=== PATIENT | male | born 1960 | race Caucasian/White ===

== ENCOUNTER → 2016-07-22 | Outpatient (CLI) | payer BC ==
--- NOTE | 2016-07-22 08:08 | XR ---
EXAMINATION TYPE: XR cervical spine comp DATE OF EXAM: 07/22/2016 7:58 AM COMPARISON: NONE HISTORY: Pain posterior cervical spine TECHNIQUE: 5 view cervical spine FINDINGS: There may be some foraminal narrowing greatest at C5-6 on the left was slightly less forami nal stenosis at C5-6 on the right. There is loss of disc height C5-6. Posterior spinal lamellar line is intact. Prevertebral space is normal. Remaining disc heights are preserved. The odontoid is limite d due to overlying occiput. IMPRESSION: 1. Degenerative disc changes and bilateral foraminal stenosis C5-6.
== END | disposition home or self-care (01) ==
LOC: RADXRMAIN 07:42
PROVIDERS: ATTEND Family Medicine
DX: M99.71 Connective tissue and disc stenosis of intervertebral foramina of cervical region (principal); M50.322 Other cervical disc degeneration at C5-C6 level; M06.9 Rheumatoid arthritis, unspecified
CPT/HCPCS: 72050

== ENCOUNTER → 2018-05-27 | Outpatient (CLI) | payer BC ==
[2018-05-27 10:28] LABS: Blood Urea Nitrogen 13 mg/dL (9-20)
--- NOTE | 2018-05-27 12:04 | CT ---
EXAMINATION TYPE: CT angio chest DATE OF EXAM: 05/27/2018 COMPARISON: 05/08/2016 HISTORY: 57-year-old male Follow up to thoracic aneurysm TECHNIQUE: Contiguous axial scanning of the chest performed with IV Contrast, patient injected with 1 00 mL of Isovue 370. Coronal/sagittal MIP reconstructions performed. 3-D reconstructions generated on a dedicated independent workstation. CT DLP: 273.5 mGycm Automated exposure control for dose reduction was used. FINDINGS: Heart normal size without pericardial effusion. Motion artifacts at the aortic root but with redemonstrated mild aneurysm of 4.2 cm. Ascending aorta ectatic at 3.9 cm versus 3.7 m, previously, not significantly changed. Conventional arch vessel branching anatomy. The remainder of the thoracic aorta is normal caliber. Scattered nonenlarged mediastinal lymph nodes are unchanged. Nonenlarged and borderline sized hilar l ymph nodes measuring up to 1 cm in the right hilum are unchanged suggesting chronic postinflammatory etiology. No consolidation or pleural effusion. Tiny 3 mm posterior left midlung pulmonary nodule unchanged and benign. Tiny 3 mm subpleural pulmonary nodule peripheral left base, axial image 48, unchanged and benign. Strandy scarring in the lung bases. Some subpleural reticulations dependently in the lower lobes likely interstitial scarring. A couple small arterial phase vascular blushes in the right hepatic dome less likely vascular shuntin g. 1.3 cm vague hypodensity in the right hepatic dome, axial image 58 is present in 2016 in retrospec t suggesting a benign etiology. No osseous destructive process. IMPRESSION: 1. 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 2. ASCENDING AORTIC ECTASIA AT 3.9 CM IT IS RELATIVELY STABLE COMPARED TO 3.8 CM, PREVIOUSLY.
== END | disposition home or self-care (01) ==
LOC: RADCTMAIN 10:00
PROVIDERS: ATTEND Internal Medicine Interventional Cardiology
DX: I77.819 Aortic ectasia, unspecified site (principal); Q25.43 Congenital aneurysm of aorta
CPT/HCPCS: 82565; 84520; 71275; 36415; Q9967

== ENCOUNTER → 2019-05-17 | Outpatient (CLI) | payer OTHER ==
[2019-05-17 09:40] LABS: African American GFR (CKD) >90 (>60 ml/min/1.73 sqM); Blood Urea Nitrogen 12 mg/dL (9-20)
--- NOTE | 2019-05-17 12:35 | CT ---
EXAMINATION TYPE: CT angio chest DATE OF EXAM: 05/17/2019 COMPARISON: 05/27/2018 HISTORY: ascending aortic aneurysm follow up. CT DLP: 258.7 mGycm. Automated Exposure Control for Dose Reduction was Utilized. CONTRAST: CTA scan of the thorax is performed with IV Contrast, patient injected with 100 mL of Isovue 370, pul monary embolism protocol. MIP Images are created on CT scanner and reviewed. FINDINGS: LUNGS: Are a few punctate calcified granulomas. There are also bilateral subpleural 2 mm solid pulmon jesica nodules stable from 2018 likely benign. Minimal bibasilar subsegmental dependent atelectasis. Mil d centrilobular emphysema. Pleural parenchymal scarring at the lung bases. The lungs are grossly paty r, there is no concerning parenchymal mass identified. There is no pleural effusion or pneumothorax s een. The tracheobronchial tree is patent. MEDIASTINUM: Ascending thoracic aorta is upper limits of normal measuring 3.8 cm, similar to the prio r where this measured 3.9 cm (differences in slice selection account for the difference at 1 mm). Aor tic root is dilated measuring up to 4.5 cm, previously measuring up to 4.2 cm. Aortic arch is within normal limits showing 2.7 cm. Descending thoracic aorta is also within normal limits measuring 2.6 cm . Few mild coronary artery calcifications. There are no greater than 1 cm hilar or mediastinal lymph no zarina. No cardiomegaly or pericardial effusion is seen. OTHER: Very small hiatal hernia. Arterially enhancing lesions within the liver and segment 7 measurin g 8 mm and 6 mm. Additional lesion at the border of segment 8 is ill-defined and measures approximate ly 6 mm. These most commonly on the basis of flash filling hemangiomas and were seen on the prior of 05/19/2018. Ultrasound of the arterial portal shunts are possible. As stated on the prior exam dated are seen dating back to 2016. IMPRESSION: 1. Increasing size of the aortic root aneurysm currently measuring 4.5 cm and previously measuring 4. 2 cm on the exam of 2018. Overall stable size of the upper limits of normal ascending thoracic aorta. 2. Very small hiatal hernia.
== END | disposition home or self-care (01) ==
LOC: RADCTMAIN 09:00
PROVIDERS: ATTEND Internal Medicine Interventional Cardiology
DX: I71.2 Thoracic aortic aneurysm, without rupture (principal); K44.9 Diaphragmatic hernia without obstruction or gangrene
CPT/HCPCS: 82565; 84520; 71275; Q9967

== ENCOUNTER 2019-06-29 05:11 | Inpatient (IN) | payer OTHER ==
--- NOTE | 2019-06-29 06:12 | XR ---
EXAMINATION TYPE: XR chest 2V DATE OF EXAM: 06/29/2019 COMPARISON: 02/16/2015 HISTORY: Chest pain TECHNIQUE: 2 views FINDINGS: There is blunting of the costophrenic angles. . Heart is borderline enlarged. Bony thorax i s intact. IMPRESSION: There are small pleural effusions and atelectasis at the lung bases that appears new comp ared to last exam. Heart is increased compared to last exam. mild heart failure is possible.
[2019-06-29 06:17] LABS: Basophils % (A) 0 %; Eosinophils # (A) 0.1 k/uL (0-0.7); Eosinophils % (A) 1 %; HCT 34.5 % (39.0-53.0); HGB 10.9 gm/dL (13.0-17.5); Lymphocytes # (A) 0.6 k/uL (1.0-4.8); Lymphocytes % (A) 6 %; MCH 28.3 pg (25.0-35.0); MCHC 31.7 g/dL (31.0-37.0); MCV 89.1 fL (80.0-100.0); Mean Platelet Volume 7.3; Monocytes # (A) 0.6 k/uL (0-1.0); Monocytes % (A) 6 %; Neutrophils # (A) 8.8 k/uL (1.3-7.7); Neutrophils % (A) 86 %; Platelet Count 416 k/uL (150-450); RBC 3.87 m/uL (4.30-5.90); RDW 12.4 % (11.5-15.5); WBC 10.3 k/uL (3.8-10.6)
--- NOTE | 2019-06-29 06:30 | ED ---
General Adult HPI - General Chief complaint: Upper Respiratory Infection Stated complaint: SOB Time Seen by Provider: 06/29/19 06:02 Source: patient, RN notes reviewed Mode of arrival: ambulatory Limitations: no limitations - History of Present Illness Initial comments: 58-year-old male with a past medical history of diabetes mellitus, GERD, rheumatoid arthritis is intact to the emergency department for a chief complaint of chest pain 2 weeks. Patient states he has had sharp chest pain that has been consistent for the past 2 weeks. States it happens in different areas over the anterior chest. Patient states this pain seems to worsen with deep breathing. States she has also been short of breath which she has noticed on exertion. States that sometimes movement makes this pain worse. States she notices that when he bends over the pain worsens as well. He did see urgent care several weeks ago and was given Motrin for the pain. pain has not subsided since that time. CT of the chest was performed on 05/17/2019 that showed increasing size of the aortic root aneurysm currently measuring 4.5 cm and previously measuring 14.2 cm from 2018.Patient has no other complaints at this time including abdominal pain, nausea or vomiting, headache, or visual changes. - Related Data Home Medications Medication Instructions Recorded Confirmed Atorvastatin [Lipitor] 10 mg PO Q48H 02/16/15 02/16/15 Etanercept [Enbrel Sureclick] 50 mg SQ MO 02/16/15 02/16/15 INSULIN ASPART (NovoLOG) [NovoLOG See Protocol SQ CONTINUOUS 02/16/15 02/16/15 (formulary)] Allergies Allergy/AdvReac Type Severity Reaction Status Date / Time gluten AdvReac Vomiting Verified 06/29/19 05:21 Review of Systems ROS Statement: Those systems with pertinent positive or pertinent negative responses have been documented in the HPI. ROS Other: All systems not noted in ROS Statement are negative. Past Medical History Past Medical History: Diabetes Mellitus, GERD/Reflux, Rheumatoid Arthritis (RA) Additional Past Medical History / Comment(s): 02/16/15 Pt presented to [facility] ER with chest discomfort which started yesterday PM. He had some pounding in his chest at rest and mild dyspnea. Chest discomfort feels like indegestion at times. Discomfort increases with deep breaths at times. Other HX: IDDM with insulin pump, rheumatoid arthritis, celiac disease-gluten free diet. History of Any Multi-Drug Resistant Organisms: None Reported Past Surgical History: Adenoidectomy, Appendectomy Additional Past Surgical History / Comment(s): upper and lower GI scopes few months ago-normal. Past Anesthesia/Blood Transfusion Reactions: No Reported Reaction Past Psychological History: No Psychological Hx Reported Smoking Status: Never smoker Past Alcohol Use History: Rare Past Drug Use History: None Reported - Past Family History Father Additional Family Medical History / Comment(s): Father is 93 yrs old. He has macular degeneration. He has had caratid surgery. Mother Family Medical History: Musculoskeletal Disorder, Neurologic Disorder Additional Family Medical History / Comment(s): Mother of MS. General Exam Limitations: no limitations General appearance: alert, in no apparent distress Head exam: Present: atraumatic, normocephalic, normal inspection Eye exam: Present: normal appearance, PERRL, EOMI. Absent: scleral icterus, conjunctival injection, periorbital swelling ENT exam: Present: normal exam, mucous membranes moist Neck exam: Present: normal inspection, full ROM. Absent: tenderness, meningismus, lymphadenopathy Respiratory exam: Present: normal lung sounds bilaterally. Absent: respiratory distress, wheezes, rales, rhonchi, stridor Cardiovascular Exam: Present: regular rate, normal rhythm, normal heart sounds. Absent: systolic murmur, diastolic murmur, rubs, gallop, clicks GI/Abdominal exam: Present: soft, normal bowel sounds. Absent: distended, tenderness, guarding, rebound, rigid Neurological exam: Present: alert Course Vital Signs 06/29/19 06/29/19 05:16 05:21 Temperature 98.7 F 98.3 F Pulse Rate 94 78 Respiratory 20 18 Rate Blood Pressure 109/74 104/73 O2 Sat by Pulse 97 98 Oximetry EKG Findings - EKG Comments: EKG Findings:: Normal sinus rhythm, ventricular rate 83, KS int 156, QTC 418, T wave inversions noted in V2 V3 V4 and V5 Medical Decision Making - Medical Decision Making Vitals are stable. Patient is having pleuritic chest pain worse when bending over. This is been ongoing for 2 weeks. Also does notice intermittent fevers with the last one being about a week ago. CBC unremarkable. Mild anemia noted. CMP shows a mild degree of hyponatremia. Glucose is 231, patient is an insulin-dependent diabetic. EKG does show T-wave inversions in the precordial leads, troponin is negative. D-dimer was elevated at 3.3. Chest CT was o btained which showed a new moderate to borderline large sized pericardial effusion, correlate for possible pericarditis. There are also new small bilateral pleural effusions with associated bibasilar atelectasis and/or consolidation. Patient has not had any upper history symptoms until a mild coug h beginning yesterday. New thoracic adenopathy may be reactive. BNP was added and is pending. At this time patient will be admitted for pericardial effusion and further management by cardiology - Lab Data Result diagrams: 06/29/19 05:46 06/29/19 05:46 Lab Results 06/29/19 06/29/19 06/29/19 Range/Units 05:46 05:46 05:46 WBC 10.3 (3.8-10.6) k/uL RBC 3.87 L (4.30-5.90) m/uL Hgb 10.9 L (13.0-17.5) gm/dL Hct 34.5 L (39.0-53.0) % MCV 89.1 (80.0-100.0) fL MCH 28.3 (25.0-35.0) pg MCHC 31.7 (31.0-37.0) g/dL RDW 12.4 (11.5-15.5) % Plt Count 416 (150-450) k/uL Neutrophils % 86 % Lymphocytes % 6 % Monocytes % 6 % Eosinophils % 1 % Basophils % 0 % Neutrophils # 8.8 H (1.3-7.7) k/uL Lymphocytes # 0.6 L (1.0-4.8) k/uL Monocytes # 0.6 (0-1.0) k/uL Eosinophils # 0.1 (0-0.7) k/uL Basophils # 0.0 (0-0.2) k/uL PT 10.5 (9.0-12.0) sec INR 1.0 (<1.2) APTT 25.2 (22.0-30.0) sec D-Dimer (<0.60) mg/L FEU Sodium 132 L (137-145) mmol/L Potassium 5.2 H (3.5-5.1) mmol/L Chloride 97 L (98-107) mmol/L Carbon Dioxide 21 L (22-30) mmol/L Anion Gap 14 mmol/L BUN 12 (9-20) mg/dL Creatinine 0.83 (0.66-1.25) mg/dL Est GFR (CKD-EPI)AfAm >90 (>60 ml/min/1.73 sqM) Est GFR (CKD-EPI)NonAf >90 (>60 ml/min/1.73 sqM) Glucose 231 H (74-99) mg/dL Calcium 8.9 (8.4-10.2) mg/dL Total Bilirubin 1.9 H (0.2-1.3) mg/dL AST 81 H (17-59) U/L ALT 34 (4-49) U/L Alkaline Phosphatase 198 H (38-126) U/L Troponin I (0.000-0.034) ng/mL Total Protein 7.3 (6.3-8.2) g/dL Albumin 3.6 (3.5-5.0) g/dL Influenza Type A RNA (Not Detectd) Influenza Type B (PCR) (Not Detectd) 06/29/19 06/29/19 06/29/19 Range/Units 05:46 05:46 05:46 WBC (3.8-10.6) k/uL RBC (4.30-5.90) m/uL Hgb (13.0-17.5) gm/dL Hct (39.0-53.0) % MCV (80.0-100.0) fL MCH (25.0-35.0) pg MCHC (31.0-37.0) g/dL RDW (11.5-15.5) % Plt Count (150-450) k/uL Neutrophils % % Lymphocytes % % Monocytes % % Eosinophils % % Basophils % % Neutrophils # (1.3-7.7) k/uL Lymphocytes # (1.0-4.8) k/uL Monocytes # (0-1.0) k/uL Eosinophils # (0-0.7) k/uL Basophils # (0-0.2) k/uL PT (9.0-12.0) sec INR (<1.2) APTT (22.0-30.0) sec D-Dimer 3.13 H (<0.60) mg/L FEU Sodium (137-145) mmol/L Potassium (3.5-5.1) mmol/L Chloride (98-107) mmol/L Carbon Dioxide (22-30) mmol/L Anion Gap mmol/L BUN (9-20) mg/dL Creatinine (0.66-1.25) mg/dL Est GFR (CKD-EPI)AfAm (>60 ml/min/1.73 sqM) Est GFR (CKD-EPI)NonAf (>60 ml/min/1.73 sqM) Glucose (74-99) mg/dL Calcium (8.4-10.2) mg/dL Total Bilirubin (0.2-1.3) mg/dL AST (17-59) U/L ALT (4-49) U/L Alkaline Phosphatase (38-126) U/L Troponin I <0.012 (0.000-0.034) ng/mL Total Protein (6.3-8.2) g/dL Albumin (3.5-5.0) g/dL Influenza Type A RNA Not Detected (Not Detectd) Influenza Type B (PCR) Not Detected (Not Detectd) Disposition Clinical Impression: Pericardial effusion, Pleural effusion Disposition: ADMITTED IP TO THIS HOSP Condition: Fair Is patient prescribed a controlled substance at d/c from ED?: No Referrals: Kvng Joe DO [Primary Care Provider] - 1-2 days Time of Disposition: 09:05
[2019-06-29 06:58] LABS: Partial Thromboplastin Time 25.2 sec (22.0-30.0); Prothrombin Time 10.5 sec (9.0-12.0)
[2019-06-29 08:03] LABS: ALT 34 U/L (4-49); AST 81 U/L (17-59); African American GFR (CKD) >90 (>60 ml/min/1.73 sqM); Albumin 3.6 g/dL (3.5-5.0); Alkaline Phosphatase 198 U/L (38-126); Anion Gap 14 mmol/L; Blood Urea Nitrogen 12 mg/dL (9-20); Calcium 8.9 mg/dL (8.4-10.2); Carbon Dioxide 21 mmol/L (22-30); Chloride 97 mmol/L (98-107); Glucose 231 mg/dL (74-99); Non-African American GFR(CKD) >90 (>60 ml/min/1.73 sqM); Sodium 132 mmol/L (137-145); Total Bilirubin 1.9 mg/dL (0.2-1.3); Total Protein 7.3 g/dL (6.3-8.2)
[2019-06-29 08:05] LABS: Potassium 5.2 mmol/L (3.5-5.1)
[2019-06-29] MEDS ORDERED: SODIUM CHLORIDE 0.9% 1,000 ML IV STA (08:07)
--- NOTE | 2019-06-29 08:43 | CT ---
EXAMINATION TYPE: CT chest angio for PE DATE OF EXAM: 06/29/2019 COMPARISON: CTA chest 6 weeks ago. HISTORY: Cough, chest pain, congestion CT DLP: 281.7 mGycm. Automated Exposure Control for Dose Reduction was Utilized. CONTRAST: CTA scan of the thorax is performed with IV Contrast, patient injected with 80 mL of Isovue 370, pulm onary embolism protocol. MIP Images are created on CT scanner and reviewed. FINDINGS: LUNGS: There are new small bilateral pleural effusions with associated bibasilar atelectasis and/or c onsolidation. No pneumothorax bilaterally. MEDIASTINUM: There is slightly suboptimal bolus but there is no CT evidence for pulmonary embolism. I ncreasing prominent mediastinal lymph nodes, for reference prevascular lymph nodes axial image 59 inc reased from prior, largest anterior measures 1.8 x 1.1 cm. Enlarged AP window lymph node axial image 59 is now present. Prominent bilateral hilar lymph nodes. New moderate size pericardial effusion is s een measuring nearly 3.0 cm thickness posteriorly axial image 107. No cardiomegaly. OTHER: Liver is low dense relative to the spleen consistent with diffuse fatty infiltration. Less wel l-visualized subcentimeter enhancing lesions noted. IMPRESSION: 1. No CT evidence for acute pulmonary embolism. 2. New moderate to borderline large size pericardial effusion. Correlate for possible pericarditis. N ew Small bilateral pleural effusions with associated bibasilar atelectasis and/or consolidation. New thoracic adenopathy may be reactive.
[2019-06-29] MEDS ORDERED: NALOXONE 0.4 MG/ML 1 ML VIAL IV PRN (09:03)
[2019-06-29] MEDS ORDERED: KETOROLAC 30 MG/ML 1 ML VIAL IVP STA (11:00)
[2019-06-29] MEDS ORDERED: INDOMETHACIN 25 MG CAP PO SCH ×2 (12:25→16:00)
[2019-06-29] MEDS ORDERED: INSULIN ASPART (NovoLOG) 100 UNIT/ML VIAL SQ SCH (12:30)
[2019-06-29 12:36] LABS: Glucose,Whole Blood 198 mg/dL (75-99)
[2019-06-29] MEDS ORDERED: BENZONATATE 100 MG CAP PO PRN (12:36)
[2019-06-29] MEDS ORDERED: INSPUCOR MISCELLANE PRN (12:41)
[2019-06-29] MEDS ORDERED: INSULIN ASPART (NovoLOG) 100 UNIT/ML VIAL SQ PRN (12:41)
[2019-06-29] MEDS ORDERED: INSULIN PUMP BASAL RATES 1 EACH MISC MISCELLANE PRN (12:41)
[2019-06-29] MEDS ORDERED: INSULIN PUMP TARGET GLUCOSE 1 EACH MISC MISCELLANE PRN (12:41)
[2019-06-29] MEDS ORDERED: INSULIN PUMP ACTIVE INSULIN 1 EACH MISC MISCELLANE PRN (12:41)
[2019-06-29] MEDS ORDERED: HYDROCORTISONE SUCCINATE 100 MG/2 ML VIAL IV STA (12:58)
--- NOTE | 2019-06-29 13:09 | P.CRDCN ---
History of Present Illness Consult date: 06/29/19 History of present illness: This is a 58-year-old gentleman with history of of aortic root diameter dictation who follows with Dr. Gage regularly. Has developed some chest discomfort which wasn't positional, like bending. The symptoms progressively got worse and he was having chest discomfort upon coughing and also developed fever and chills. The chest pain will increase with coughing and deep breathing. He was seen in the clinic and was treated with cough medication and Motrin without much relief. Chest x-ray apparently was okay. Because of progressive symptoms patient came to the emergency room. His chest x-ray showed evidence of cardiac megaly and pleural effusion. Computed tomography scan of the chest revealed evidence of moderate pericardial effusion. Bedside echo also showed moderate pericardial effusion. Clinically patient does have some JVD and also peripheral edema. It appears that patient out of proportion to pericarditis, could be viral. I'm going to initiate him on steroids and colchicine. We'll continue to monitor his pericardial effusion with serial echocardiograms. Computed tomography scan an echocardiogram did not reveal any evidence of for aortic dissection. EKG showed diffuse ST-T changes in anterior leads. Review of Systems As per the chart Past Medical History Past Medical History: Diabetes Mellitus, GERD/Reflux, Rheumatoid Arthritis (RA) Additional Past Medical History / Comment(s): 02/16/15 Pt presented to [facility] ER with chest discomfort which started yesterday PM. He had some pounding in his chest at rest and mild dyspnea. Chest discomfort feels like indegestion at times. Discomfort increases with deep breaths at times. Other HX: IDDM with insulin pump, rheumatoid arthritis, celiac disease-gluten free diet. History of Any Multi-Drug Resistant Organisms: None Reported Past Surgical History: Adenoidectomy, Appendectomy Additional Past Surgical History / Comment(s): upper and lower GI scopes few months ago-normal. Past Anesthesia/Blood Transfusion Reactions: No Reported Reaction Past Psychological History: No Psychological Hx Reported Smoking Status: Never smoker Past Alcohol Use History: Rare Past Drug Use History: None Reported - Past Family History Father Additional Family Medical History / Comment(s): Father is 93 yrs old. He has macular degeneration. He has had caratid surgery. Mother Family Medical History: Musculoskeletal Disorder, Neurologic Disorder Additional Family Medical History / Comment(s): Mother of MS. Medications and Allergies Home Medications Medication Instructions Recorded Confirmed Type INSULIN ASPART (NovoLOG) [NovoLOG See Protocol SQ CONTINUOUS 02/16/15 06/29/19 History (formulary)] Ibuprofen [Motrin Ib] 600 mg PO Q6H PRN 06/29/19 06/29/19 History Multivitamins, Thera [Multivitamin 1 tab PO DAILY 06/29/19 06/29/19 History (formulary)] Phenylephrine/Dm/Acetaminop/GG 15 ml PO DAILY PRN 06/29/19 06/29/19 History [Vicks Dayquil Severe Cold-Flu] Tofacitinib Citrate [Xeljanz Xr] 11 mg PO DAILY 06/29/19 06/29/19 History Allergies Allergy/AdvReac Type Severity Reaction Status Date / Time gluten AdvReac Vomiting Verified 06/29/19 09:38 Physical Exam Vitals: Vital Signs Temp Pulse Pulse Resp BP BP Pulse Ox 06/29/19 11:50 100.0 F H 86 24 100/71 93 L 06/29/19 05:21 98.3 F 78 18 104/73 98 06/29/19 05:16 98.7 F 94 20 109/74 97 Intake and Output 06/28/19 06/29/19 06/29/19 22:59 06:59 14:59 Intake Total 10 Balance 10 Intake: IV 10 Invasive Line 1 10 Other: Weight 83.915 kg GENERAL EXAM: Patient is alert and oriented and doesn't appear to be in any acute distress HEENT: Normocephalic. Normal reaction of pupils, equal size, normal range of extraocular motion. No erythema or exudates in the throat. NECK: JVD. CHEST: No chest wall deformity. LUNGS: Equal air entry with no crackles or wheeze. HEART: S1 and S2 normal. No murmurs or gallops heard ABDOMEN: No hepatosplenomegaly, normal bowel sounds, no guarding or rigidity. SKIN: No rashes CENTRAL NERVOUS SYSTEM: No focal deficits. EXTREMITIES: 1-2+ edema Results 06/29/19 05:46 06/29/19 05:46 Cardiac Enzymes 06/29/19 06/29/19 Range/Units 05:46 05:46 AST 81 H (17-59) U/L Troponin I <0.012 (0.000-0.034) ng/mL Coagulation 06/29/19 Range/Units 05:46 PT 10.5 (9.0-12.0) sec APTT 25.2 (22.0-30.0) sec CBC 06/29/19 Range/Units 05:46 WBC 10.3 (3.8-10.6) k/uL RBC 3.87 L (4.30-5.90) m/uL Hgb 10.9 L (13.0-17.5) gm/dL Hct 34.5 L (39.0-53.0) % Plt Count 416 (150-450) k/uL Comprehensive Metabolic Panel 06/29/19 Range/Units 05:46 Sodium 132 L (137-145) mmol/L Potassium 5.2 H (3.5-5.1) mmol/L Chloride 97 L (98-107) mmol/L Carbon Dioxide 21 L (22-30) mmol/L BUN 12 (9-20) mg/dL Creatinine 0.83 (0.66-1.25) mg/dL Glucose 231 H (74-99) mg/dL Calcium 8.9 (8.4-10.2) mg/dL AST 81 H (17-59) U/L ALT 34 (4-49) U/L Alkaline Phosphatase 198 H (38-126) U/L Total Protein 7.3 (6.3-8.2) g/dL Albumin 3.6 (3.5-5.0) g/dL Current Medications Generic Name Dose Route Start Last Admin Trade Name Freq PRN Reason Stop Dose Admin Benzonatate 100 mg 06/29/19 12:36 Tessalon Perles PO TID PRN Cough Colchicine 0.6 mg 06/29/19 13:00 Colcrys PO BID MATTHEW Furosemide 20 mg 06/29/19 13:00 Lasix IV Q12HR MATTHEW Sodium Chloride 1,000 mls @ 20 mls/hr 06/29/19 09:15 Saline 0.9% IV .Q24H MATTHEW Insulin Aspart 0 unit 06/29/19 12:41 Novolog SQ DAILY PRN Insulin Pump Replacement Ketorolac Tromethamine 15 mg 06/29/19 18:00 Toradol IVP 07/03/19 12:36 Q6HR MATTHEW Miscellaneous Information 1 each 06/29/19 12:41 Insulin Pump Basal Rates MISCELLANE Q6HR PRN Blood Sugar - High Protocol Miscellaneous Information 0 unit 06/29/19 17:30 Insulin Pump Meal Bolus MISCELLANE ACHS MATTHEW Protocol Miscellaneous Information 0 unit 06/29/19 12:41 Insulin Pump Correction Bolus MISCELLANE ACHS PRN Blood Sugar - High Protocol Miscellaneous Information 1 each 06/29/19 12:41 Insulin Pump Active Insulin MISCELLANE ACHS PRN Blood Sugar - High Protocol Miscellaneous Information 1 each 06/29/19 12:41 Insulin Pump Target Glucose MISCELLANE ACHS PRN Blood Sugar - High Protocol Morphine Sulfate 2 mg 06/29/19 12:35 Morphine Sulfate (Inj) IVP Q4H PRN Pain/Discomfort Naloxone HCl 0.2 mg 06/29/19 09:03 Narcan IV Q2M PRN Opioid Reversal Prednisone 20 mg 06/29/19 16:00 PO TID MATTHEW Intake and Output 06/28/19 06/29/19 06/29/19 22:59 06:59 14:59 Intake Total 10 Balance 10 Intake: IV 10 Invasive Line 1 10 Other: Weight 83.915 kg 06/29/19 05:46 06/29/19 05:46 EKG Interpretations (text) Sinus rhythm with mild T-wave changes in anterolateral leads Assessment and Plan (1) Pericarditis Current Visit: Yes Status: Acute Code(s): I31.9 - DISEASE OF PERICARDIUM, UNSPECIFIED SNOMED Code(s): 0586474 (2) Diastolic CHF Current Visit: Yes Status: Acute Code(s): I50.30 - UNSPECIFIED DIASTOLIC (CONGESTIVE) HEART FAILURE SNOMED Code(s): 411499448 (3) Pericardial effusion Current Visit: Yes Status: Acute Code(s): I31.3 - PERICARDIAL EFFUSION (NONINFLAMMATORY) SNOMED Code(s): 616298786 (4) Pleural effusion Current Visit: Yes Status: Acute Code(s): J90 - PLEURAL EFFUSION, NOT ELSEWHERE CLASSIFIED SNOMED Code(s): 73669723 Plan: I'll start him on steroids and colchicine on small dose of diuretics. We will get a sedimentation rate and C-reactive protein. Follow serial echocardiograms. Further recommendations depend upon the clinical course. We'll also get viral studies
[2019-06-29] MEDS: FUROSEMIDE 10 MG/ML 2 ML VIAL IV SCH ×2 (13:27→21:38)
[2019-06-29] MEDS: COLCHICINE 0.6 MG EACH PO SCH ×2 (13:28→21:38)
[2019-06-29] MEDS: MORPHINE SULFATE 2 MG/ML SYRINGE IVP PRN ×2 (13:28→17:22)
--- NOTE | 2019-06-29 15:10 | ECHOF ---
Referral Reason:Pericardial effusion; MEASUREMENTS -------- HEIGHT: 182.9 cm WEIGHT: 83.9 kg BP: RVIDd: 3.1 cm (< 3.3) IVSd: 1.2 cm (0.6 - 1.1) LVIDd: 4.4 cm (3.9 - 5.3) LVPWd: 1.3 cm (0.6 - 1.1) IVSs: 1.4 cm LVIDs: 2.8 cm LVPWs: 1.6 cm LA Diam: 3.9 cm (2.7 - 3.8) Ao Diam: 4.2 cm (2.0 - 3.7) AV Cusp: 2.3 cm (1.5 - 2.6) LA Diam: 3.9 cm (2.7 - 3.8) MV EXCURSION: 21.171 mm (> 18.000) MV EF SLOPE: 81 mm/s (70 - 150) EPSS: 0.3 cm MV E Kodak: 0.68 m/s MV DecT: 155 ms MV A Kodak: 0.47 m/s MV E/A Ratio: 1.44 RAP: 5.00 mmHg RVSP: 22.55 mmHg FINDINGS -------- Sinus rhythm. This was a technically good study. The left ventricular size is normal. There is mild concentric left ventricular hypertrophy. Overa ll left ventricular systolic function is normal with, an EF between 55 - 60 %. The right ventricle is normal in size. The left atrial size is normal. The right atrial size is normal. The aortic valve is trileaflet, and appears structurally normal. No aortic stenosis or regurgitation. The mitral valve is normal. Mild mitral regurgitation is present. Mild tricuspid regurgitation present. Right ventricular systolic pressure is normal at < 35 mmHg. The right ventricular systolic pressure, as measured by Doppler, is 22.55mmHg. There is no pulmonic regurgitation present. 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 There is a moderate, generalized pericardial effusion present. There is no evidence of cardiac tamp onade. CONCLUSIONS -------- 1. Sinus rhythm. 2. This was a technically good study. 3. The left ventricular size is normal. 4. There is mild concentric left ventricular hypertrophy. 5. Overall left ventricular systolic function is normal with, an EF between 55 - 60 %. 6. The left atrial size is normal. 7. The aortic valve is trileaflet, and appears structurally normal. No aortic stenosis or regurgitati on. 8. Mild mitral regurgitation is present. 9. Mild tricuspid regurgitation present. 10. Right ventricular systolic pressure is normal at < 35 mmHg. 11. There is no pulmonic regurgitation present. 12. 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 13. There is a moderate, generalized pericardial effusion present. 14. There is no evidence of cardiac tamponade. EXTRACTOR MACHINE OPERATOR: Era Aguillon RDCS
[2019-06-29] MEDS: SODIUM CHLORIDE 0.9% 1,000 ML IV SCH (15:16)
[2019-06-29] MEDS ORDERED: ONDANSETRON 4 MG/2 ML VIAL IVP PRN (15:33)
[2019-06-29] MEDS ORDERED: IPRATROPIUM-ALBUTEROL 3 ML NEB INHALATION PRN (15:33)
[2019-06-29] MEDS ORDERED: ACETAMINOPHEN TAB 325 MG TAB PO PRN (15:33)
--- NOTE | 2019-06-29 15:34 | P.HPIM ---
History of Present Illness H&P Date: 06/29/19 This is a 58 years old male patient of Dr. 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 Patient also has been evaluated in the past for lupus and seen dermatology. He was told by the brand advocate that he does have lupus. Patient also sees Dr. Rascon who is treating the patient with rheumatoid arthritis. On evaluation today in the ER, patient had low grade temp 100 with blood pressure 100/71 saturating 93% on 2 L. Chest CTA was concerning for moderate to large pleural pericardial effusion with the bilateral pleural effusion and associated bibasilar atelectasis with bowel predominant mediastinal and hilar lymphadenopathy. EKG suggest T-wave inversions in the anterior leads from V1 to V5. Stat echo was obtained and results are pending. Patient received a dose of Toradol with minimal improvement in pruritus. Toradol initiated at 30 mg IV every 6 hours with morphine 2 mg every 4 hours. Patient initiated on colchicine 0.6 mg twice a day along with steroids. Review of Systems Constitutional: Endorses chills, endorses fever, Denies lethargy, Denies malaise, Denies poor appetite, Denies weakness, Denies weight loss Eyes: denies decreased vision, denies diplopia, denies discharge, denies pain Ears: deny: decreased hearing Ears, nose, mouth and throat: Denies dental pain, Denies headache, Denies nasal discharge, Denies nose pain Cardiovascular: Endorses chest pain on taking a deep breath, Denies decreased exercise tolerance, endorses edema in lower extremities, Denies high blood pressure, Denies irregular heart beat, Denies palpitations, Denies paroxysmal nocturnal dyspnea, Denies rapid heart beat, endorses shortness of breath Respiratory: Denies congestion, endorses cough, Denies cough with sputum, endorses shortness of breath, Denies home oxygen, Denies wheezing Gastrointestinal: Denies abdominal pain, Denies change in bowel habits, Denies coffee ground emesis, Denies early satiety, Denies excessive gas, Denies heartburn, Denies hematemesis, Denies hematochezia, Denies loss of appetite, Denies nausea, Denies vomiting Genitourinary: Denies dysuria, Denies flank pain, Denies kidney stones, Denies menorrhagia, Denies urgency, Denies urinary frequency Musculoskeletal: Denies gait dysfunction, Denies limitation of motion, Denies morning stiffness, Denies muscle cramps Integumentary: Denies rash, Denies wounds, Denies brittle nails, Denies change in hair/nails, Denies darkening of skin Neurological: Denies balance difficulties, Denies change in speech, Denies double vision, Denies gait dysfunction, Denies loss of vision, Denies motor disturbance, Denies numbness, Denies paralysis, Denies paresthesias, Denies seizures Psychiatric: Denies anxiety, Denies depression Endocrine: Denies excessive sweating, Denies excessive thirst, Denies high blood sugars, Denies palpitations Hematologic/Lymphatic: Denies easy bruising, Denies lymphadenopathy Past Medical History Past Medical History: Diabetes Mellitus, GERD/Reflux, Rheumatoid Arthritis (RA) Additional Past Medical History / Comment(s): 02/16/15 Pt presented to [facility] ER with chest discomfort which started yesterday PM. He had some pounding in his chest at rest and mild dyspnea. Chest discomfort feels like indegestion at times. Discomfort increases with deep breaths at times. Other HX: IDDM with insulin pump, rheumatoid arthritis, celiac disease-gluten free diet. History of Any Multi-Drug Resistant Organisms: None Reported Past Surgical History: Adenoidectomy, Appendectomy Additional Past Surgical History / Comment(s): upper and lower GI scopes few months ago-normal. Past Anesthesia/Blood Transfusion Reactions: No Reported Reaction Past Psychological History: No Psychological Hx Reported Smoking Status: Never smoker Past Alcohol Use History: Rare Past Drug Use History: None Reported - Past Family History Father Additional Family Medical History / Comment(s): Father is 93 yrs old. He has macular degeneration. He has had caratid surgery. Mother Family Medical History: Musculoskeletal Disorder, Neurologic Disorder Additional Family Medical History / Comment(s): Mother of MS. Medications and Allergies Home Medications Medication Instructions Recorded Confirmed Type INSULIN ASPART (NovoLOG) [NovoLOG See Protocol SQ CONTINUOUS 02/16/15 06/29/19 History (formulary)] Ibuprofen [Motrin Ib] 600 mg PO Q6H PRN 06/29/19 06/29/19 History Multivitamins, Thera [Multivitamin 1 tab PO DAILY 06/29/19 06/29/19 History (formulary)] Phenylephrine/Dm/Acetaminop/GG 15 ml PO DAILY PRN 06/29/19 06/29/19 History [Vicks Dayquil Severe Cold-Flu] Tofacitinib Citrate [Xeljanz Xr] 11 mg PO DAILY 06/29/19 06/29/19 History Allergies Allergy/AdvReac Type Severity Reaction Status Date / Time gluten AdvReac Vomiting Verified 06/29/19 09:38 Physical Exam Vitals: Vital Signs Temp Pulse Pulse Resp BP BP Pulse Ox 06/29/19 11:50 100.0 F H 86 24 100/71 93 L 06/29/19 05:21 98.3 F 78 18 104/73 98 06/29/19 05:16 98.7 F 94 20 109/74 97 Intake and Output 06/28/19 06/29/19 06/29/19 22:59 06:59 14:59 Intake Total 10 Balance 10 Intake: IV 10 Invasive Line 1 10 Other: Weight 83.915 kg - Constitutional General appearance: cooperative, in acute distress - EENT Eyes: anicteric sclerae, PERRLA, normal appearance ENT: hearing grossly normal - Neck Neck: no lymphadenopathy, normal ROM, no rigidity, no stridor, no thyromegaly - Respiratory Respiratory: bilateral: CTA, diminished at bases - Cardiovascular Rhythm: regular Heart sounds: normal: S1, S2 Abnormal Heart Sounds: no systolic murmur, no diastolic murmur or pericardial rub noted in the left sternal border - Gastrointestinal General gastrointestinal: normal bowel sounds, soft mild tenderness in the epigastric region - Integumentary Integumentary: no rash - Neurologic Neurologic: CNII-XII intact - Musculoskeletal Musculoskeletal: gait not assessed strength equal bilaterally, minimal pedal edema - Psychiatric Psychiatric: A&O x's 3, appropriate affect Results CBC & Chem 7: 06/29/19 05:46 06/29/19 05:46 Labs: Abnormal Lab Results - Last 24 Hours (Table) 06/29/19 06/29/19 06/29/19 Range/Units 05:46 05:46 05:46 RBC 3.87 L (4.30-5.90) m/uL Hgb 10.9 L (13.0-17.5) gm/dL Hct 34.5 L (39.0-53.0) % Neutrophils # 8.8 H (1.3-7.7) k/uL Lymphocytes # 0.6 L (1.0-4.8) k/uL D-Dimer 3.13 H (<0.60) mg/L FEU Sodium 132 L (137-145) mmol/L Potassium 5.2 H (3.5-5.1) mmol/L Chloride 97 L (98-107) mmol/L Carbon Dioxide 21 L (22-30) mmol/L Glucose 231 H (74-99) mg/dL POC Glucose (mg/dL) (75-99) mg/dL Total Bilirubin 1.9 H (0.2-1.3) mg/dL AST 81 H (17-59) U/L Alkaline Phosphatase 198 H (38-126) U/L 06/29/19 Range/Units 12:16 RBC (4.30-5.90) m/uL Hgb (13.0-17.5) gm/dL Hct (39.0-53.0) % Neutrophils # (1.3-7.7) k/uL Lymphocytes # (1.0-4.8) k/uL D-Dimer (<0.60) mg/L FEU Sodium (137-145) mmol/L Potassium (3.5-5.1) mmol/L Chloride (98-107) mmol/L Carbon Dioxide (22-30) mmol/L Glucose (74-99) mg/dL POC Glucose (mg/dL) 198 H (75-99) mg/dL Total Bilirubin (0.2-1.3) mg/dL AST (17-59) U/L Alkaline Phosphatase (38-126) U/L Thrombosis Risk Factor Assmnt - DVT/VTE Prophylaxis DVT/VTE Prophylaxis: Pharmacologic Prophylaxis ordered, Mechanical Prophylaxis ordered Assessment and Plan Plan: #1 acute pericarditis with moderate pericardial effusion. Continue Toradol 30 mg IV every 6 hours. Status post one dose of Toradol and hydrocortisone. Will initiate patient on prednisone 40 mg by mouth daily with colchicine 0.6 mg twice a day. Lasix initiated by cardiology at 20 IV every 12. Continue Motrin at 600 by mouth 3 times a day. Comprehensive bilateral panel, HIV, hepatitis, KAMRYN, echovirus, ESR CRP HIV parvovirus ordered. Troponin every 6 hours but cultures ordered Tylenol as needed for fever #2 type 1 insulin-dependent patient to continue insulin pump while patient is in the hospital. To be transitioned to Levemir and insulin sliding scale if patient is to be nothing by mouth #3 history of rheumatoid arthritis hold xeljanz #4 and elevated liver enzymes likely secondary to fatty liver disease. CTA s uggests fatty infiltration of the liver. Hepatitis panel pending #5 reactive mediastinal and hilar lymphadenopathy with minimal pleural effusion likely reactive. Patient is breathing on room air likely viral, if patient continues to require oxygen and have pulmonary on consult #6 CODE STATUS full code #7 DVT prophylaxis with ambulation
[2019-06-29] MEDS ORDERED: predniSONE 20 MG TAB PO SCH (16:00)
[2019-06-29 17:14] LABS: Glucose,Whole Blood 246 mg/dL (75-99)
[2019-06-29] MEDS: IBUPROFEN 600 MG TAB PO SCH (17:21)
[2019-06-29] MEDS: INSULIN PUMP MEAL BOLUS 1 UNIT MISC MISCELLANE SCH ×2 (17:22→21:38)
[2019-06-29] MEDS ORDERED: KETOROLAC 30 MG/ML 1 ML VIAL IVP SCH (18:00)
[2019-06-29 19:50] LABS: EBV-EA (IgG) <0.2 AI; EBV-EBNA(IgG) >8.0 AI; EBV-VCA (IgG) >8.0 AI; EBV-VCA (IgM) <0.2 AI; HIV 1 AB Non-Reactive (Non-Reactive); HIV 2 AB Non-Reactive (Non-Reactive); HIV AB P24 Non-Reactive (Non-Reactive); HIV P24 AG Non-Reactive (Non-Reactive)
[2019-06-29 20:11] LABS: Hepatitis A Antibody IgM Non-Reactive (Non-Reactive); Hepatitis B Core IgM Non-Reactive (Non-Reactive); Hepatitis B Surface Antigen Non-Reactive (Non-Reactive); Hepatitis C IgG Antibody Non-Reactive (Non-Reactive)
[2019-06-29 20:27] LABS: Glucose,Whole Blood 230 mg/dL (75-99)
[2019-06-29] MEDS ORDERED: INSULIN DETEMIR (LEVEMIR) 100 UNIT/ML SYR SQ SCH (21:00)
[2019-06-29] MEDS: guaiFENesin 600 MG TABLET.ER PO SCH (21:38)
[2019-06-29 22:45] LABS: Hemoglobin A1C 7.2 % (4.0-6.0)
[2019-06-30 06:01] LABS: Basophils % (A) 0 %; Eosinophils % (A) 0 %; HCT 30.1 % (39.0-53.0); HGB 9.9 gm/dL (13.0-17.5); Lymphocytes # (A) 1.1 k/uL (1.0-4.8); Lymphocytes % (A) 8 %; MCH 29.2 pg (25.0-35.0); MCHC 32.9 g/dL (31.0-37.0); MCV 88.7 fL (80.0-100.0); Mean Platelet Volume 7.1; Monocytes # (A) 0.7 k/uL (0-1.0); Monocytes % (A) 5 %; Neutrophils # (A) 11.7 k/uL (1.3-7.7); Neutrophils % (A) 86 %; Platelet Count 450 k/uL (150-450); RBC 3.39 m/uL (4.30-5.90); RDW 12.4 % (11.5-15.5); WBC 13.7 k/uL (3.8-10.6)
[2019-06-30 06:11] VITALS: RESP 18
[2019-06-30 06:13] LABS: ALT 18 U/L (4-49); AST 21 U/L (17-59); African American GFR (CKD) >90 (>60 ml/min/1.73 sqM); Albumin 2.6 g/dL (3.5-5.0); Alkaline Phosphatase 131 U/L (38-126); Anion Gap 5 mmol/L; Blood Urea Nitrogen 16 mg/dL (9-20); Calcium 8.6 mg/dL (8.4-10.2); Carbon Dioxide 27 mmol/L (22-30); Chloride 99 mmol/L (98-107); Glucose 246 mg/dL (74-99); Non-African American GFR(CKD) >90 (>60 ml/min/1.73 sqM); Potassium 4.6 mmol/L (3.5-5.1); Sodium 131 mmol/L (137-145); Total Protein 5.5 g/dL (6.3-8.2)
[2019-06-30] MEDS: INSULIN PUMP MEAL BOLUS 1 UNIT MISC MISCELLANE SCH ×2 (06:49→13:18)
[2019-06-30] MEDS: IBUPROFEN 600 MG TAB PO SCH ×2 (06:52→13:18)
[2019-06-30] MEDS: COLCHICINE 0.6 MG EACH PO SCH (08:38)
[2019-06-30] MEDS: FUROSEMIDE 10 MG/ML 2 ML VIAL IV SCH (08:38)
[2019-06-30] MEDS: guaiFENesin 600 MG TABLET.ER PO SCH (08:39)
[2019-06-30] MEDS: SODIUM CHLORIDE 0.9% 1,000 ML IV SCH (08:42)
[2019-06-30 08:51] VITALS: BP 95/59; PULSE 71; TEMP 98.2
[2019-06-30] MEDS ORDERED: predniSONE 20 MG TAB PO SCH (09:00)
--- NOTE | 2019-06-30 11:57 | P.DS ---
Providers Date of admission: 06/29/19 09:03 Attending physician: Qamar Russ Consults: 06/29/19 09:03 Consult Physician Routine Consulting Provider: [facility] Consult Reason/Comments: moderate to large pericardial effusion, bilat pleural effusions Do you want consulting provider notified?: Yes 06/30/19 09:55 Consult Physician Routine Consulting Provider: Honey Rosen Consult Reason/Comments: acute pericarditis Do you want consulting provider notified?: Yes Primary care physician: Kvng Joe [place] [facility] Course: This is a 58 years old male patient of Dr. 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 Patient also has been evaluated in the past for lupus and seen dermatology. He was told by the d ermatologist that he does have lupus. Patient also sees Dr. Rascon who is treating the patient with rheumatoid arthritis. On evaluation today in the ER, patient had low grade temp 100 with blood pressure 100/71 saturating 93% on 2 L. Chest CTA was concerning for moderate to large pleural pericardial effusion with the bilateral pleural effusion and associated bibasilar atelectasis with bowel predominant mediastinal and hilar lymphadenopathy. EKG suggest T-wave inversions in the anterior leads from V1 to V5. Stat echo was obtained and results are pending. Patient received a dose of Toradol with minimal improvement in pruritus. Toradol initiated at 30 mg IV every 6 hours with morphine 2 mg every 4 hours. Patient initiated on colchicine 0.6 mg twice a day along with steroids. 06/30/2019 patient evaluated at bedside vitals are stable no febrile episode noted temp 98.2, pulse 71 blood pressure 95/59 arm oxygen saturation 94 on 2 L. Patient is feeling much comfortable. IV steroids were discontinued today continue with colchicine and ibuprofen for pain control. Patient's blood sugar has been in the range of 246. Steroids are discontinued and hopefully patient's blood sugar will improve. Pro-calcitonin mildly elevated at 0.56. Infectious disease consulted for possible etiology of pericarditis. Arm and if there is in need of antibiotics. EBV IgG was positive HIV and influenza and hepatitis panel has been negative for so far. KAMRYN is positive, reflexes pending. I'll consult infectious disease as pro-calcitonin is positive for concern of any antibiotics needed on discharge. Discharge Diagnosis #1 acute pericarditis with moderate pericardial effusion likely viral. Workup pending follow-up with cardiology as outpatient. ever #2 type 1 insulin-dependent patient on insulin pump #3 history of rheumatoid arthritis #4 Elevated liver enzymes likely secondary to fatty liver disease. #5 Reactive mediastinal and hilar lymphadenopathy with minimal pleural effusion likely reactive Disposition home with self-care Patient Condition at Discharge: Fair Plan - Discharge Summary Discharge Rx Participant: Yes New Discharge Prescriptions: No Action INSULIN ASPART (NovoLOG) [NovoLOG (formulary)] See Protocol SQ CONTINUOUS Phenylephrine/Dm/Acetaminop/GG [Vicks Dayquil Severe Cold-Flu] 15 ml PO DAILY PRN PRN Reason: Cold Symptoms Tofacitinib Citrate [Xeljanz Xr] 11 mg PO DAILY Multivitamins, Thera [Multivitamin (formulary)] 1 tab PO DAILY Ibuprofen [Motrin Ib] 600 mg PO Q6H PRN PRN Reason: Pain Or Fever > 100.5 Discharge Medication List INSULIN ASPART (NovoLOG) [NovoLOG (formulary)] See Protocol SQ CONTINUOUS 02/16 [History] Ibuprofen [Motrin Ib] 600 mg PO Q6H PRN 06/29/19 [History] Multivitamins, Thera [Multivitamin (formulary)] 1 tab PO DAILY 06/29/19 [History] Phenylephrine/Dm/Acetaminop/GG [Vicks Dayquil Severe Cold-Flu] 15 ml PO DAILY PRN 06/29/19 [History] Tofacitinib Citrate [Xeljanz Xr] 11 mg PO DAILY 06/29/19 [History] Follow up Appointment(s)/Referral(s): Kvng Joe DO [Primary Care Provider] - 1-2 days
--- NOTE | 2019-06-30 12:52 | P.PN ---
Subjective Patient is doing a lot better now. Minimal discomfort in the chest He presented with severe chest discomfort that was worse upon bending forwards, lying flat in bed with pain significantly worse The pain is a lot better now he is on colchicine He was given steroids. I have discontinued this White count elevated 13.7, hemoglobin 9.9 Sodium 131 potassium 4.6. And creatinine normal Troponin normal On examination blood pressure is 102 57 mmHg pulse rate in the 70s, afebrile Breath sounds are clear no rhonchi no crackles There is a soft systolic sound over the precordium and the patient leans forward Intensity of the sound is minimal when he is lying flat Abdomen is soft nontender Extremities warm no edema Twelve-lead ECG was reviewed and shows T-wave inversions in the precordial leads no ST elevation Troponins are normal Impression Likely peritonitis, likely viral Moderate generalized pericardial effusion without evidence for tamponade No evidence for myocarditis Viral titers pending Suggest Colchicine 0.6 twice a day or 1.2 mg twice a day May take indomethacin or Motrin line avoid steroids Follow-up with Dr. Dr. Gage in a week Objective - Vital Signs Vital signs: Vital Signs Temp 98.2 F 06/30/19 08:45 Pulse 71 06/30/19 08:45 Resp 18 06/30/19 08:45 BP 95/59 06/30/19 08:45 Pulse Ox 94 L 06/30/19 08:45 Intake & Output 06/29/19 06/30/19 06/30/19 18:59 06:59 18:59 Intake Total 260 30 250 Balance 260 30 250 Weight 83.915 kg 82.8 kg Intake: IV 20 30 10 Invasive Line 1 20 30 10 Oral 240 240 Other: Voiding Method Toilet Toilet # Voids 2 2 - Labs CBC & Chem 7: 06/30/19 05:24 06/30/19 05:24 Labs: Abnormal Lab Results - Last 24 Hours (Table) 06/29/19 06/29/19 06/29/19 Range/Units 05:46 05:46 15:21 WBC (3.8-10.6) k/uL RBC (4.30-5.90) m/uL Hgb (13.0-17.5) gm/dL Hct (39.0-53.0) % Neutrophils # (1.3-7.7) k/uL ESR 99 H (0-15) mm/hr Sodium (137-145) mmol/L Glucose (74-99) mg/dL POC Glucose (mg/dL) (75-99) mg/dL Hemoglobin A1c 7.2 H (4.0-6.0) % Alkaline Phosphatase (38-126) U/L C-Reactive Protein 194.5 H (<10.0) mg/L Total Protein (6.3-8.2) g/dL Albumin (3.5-5.0) g/dL Procalcitonin (0.02-0.09) ng/mL KAMRYN Screen (NEGATIVE) EBV Capsid Ag IgG Intrp (NEGATIVE) EBV Nuc Ag IgG Interp (NEGATIVE) 06/29/19 06/29/19 06/29/19 Range/Units 15:21 15:21 15:32 WBC (3.8-10.6) k/uL RBC (4.30-5.90) m/uL Hgb (13.0-17.5) gm/dL Hct (39.0-53.0) % Neutrophils # (1.3-7.7) k/uL ESR (0-15) mm/hr Sodium (137-145) mmol/L Glucose (74-99) mg/dL POC Glucose (mg/dL) (75-99) mg/dL Hemoglobin A1c (4.0-6.0) % Alkaline Phosphatase (38-126) U/L C-Reactive Protein (<10.0) mg/L Total Protein (6.3-8.2) g/dL Albumin (3.5-5.0) g/dL Procalcitonin 0.56 H (0.02-0.09) ng/mL KAMRYN Screen POSITIVE H (NEGATIVE) EBV Capsid Ag IgG Intrp POSITIVE H (NEGATIVE) EBV Nuc Ag IgG Interp POSITIVE H (NEGATIVE) 06/29/19 06/29/19 06/30/19 Range/Units 17:13 20:25 05:24 WBC 13.7 H (3.8-10.6) k/uL RBC 3.39 L (4.30-5.90) m/uL Hgb 9.9 L (13.0-17.5) gm/dL Hct 30.1 L (39.0-53.0) % Neutrophils # 11.7 H (1.3-7.7) k/uL ESR (0-15) mm/hr Sodium (137-145) mmol/L Glucose (74-99) mg/dL POC Glucose (mg/dL) 246 H 230 H (75-99) mg/dL Hemoglobin A1c (4.0-6.0) % Alkaline Phosphatase (38-126) U/L C-Reactive Protein (<10.0) mg/L Total Protein (6.3-8.2) g/dL Albumin (3.5-5.0) g/dL Procalcitonin (0.02-0.09) ng/mL KAMRYN Screen (NEGATIVE) EBV Capsid Ag IgG Intrp (NEGATIVE) EBV Nuc Ag IgG Interp (NEGATIVE) 06/30/19 Range/Units 05:24 WBC (3.8-10.6) k/uL RBC (4.30-5.90) m/uL Hgb (13.0-17.5) gm/dL Hct (39.0-53.0) % Neutrophils # (1.3-7.7) k/uL ESR (0-15) mm/hr Sodium 131 L (137-145) mmol/L Glucose 246 H (74-99) mg/dL POC Glucose (mg/dL) (75-99) mg/dL Hemoglobin A1c (4.0-6.0) % Alkaline Phosphatase 131 H (38-126) U/L C-Reactive Protein (<10.0) mg/L Total Protein 5.5 L (6.3-8.2) g/dL Albumin 2.6 L (3.5-5.0) g/dL Procalcitonin (0.02-0.09) ng/mL KAMRYN Screen (NEGATIVE) EBV Capsid Ag IgG Intrp (NEGATIVE) EBV Nuc Ag IgG Interp (NEGATIVE)
[2019-07-01 11:32] LABS: ANA Pattern Speckled
[2019-07-06 15:12] LABS: Echovirus AB Type 11 1:20 (<1:10); Echovirus AB Type 6 <1:10 (<1:10); Echovirus AB Type 7 <1:10 (<1:10); Echovirus AB Type 9 1:20 (<1:10)
== END 2019-06-30 14:14 | disposition home or self-care (01) | DRG 315 ==
LOC: EC 05:11 → 3SCARD 09:03
PROVIDERS: ADMIT Internal Medicine Geriatric Medicine; ATTEND Internal Medicine Geriatric Medicine
DX: I30.1 Infective pericarditis (principal); I50.32 Chronic diastolic (congestive) heart failure; Q25.43 Congenital aneurysm of aorta; J90 Pleural effusion, not elsewhere classified; D64.9 Anemia, unspecified; E11.9 Type 2 diabetes mellitus without complications; M06.9 Rheumatoid arthritis, unspecified; Z96.41 Presence of insulin pump (external) (internal); R59.0 Localized enlarged lymph nodes; Z79.4 Long term (current) use of insulin; Z91.09 Other allergy status, other than to drugs and biological substances
CPT/HCPCS: 36415; 71046; 71275; 80053; 80074; 83036; 83880; 84145; 84484; 85025; 85379; 85610; 85652; 85730; 86038; 86039; 86140; 86658; 86663; 86664; 86665; 86747; 87040; 87252; 87390; 87498; 87502; 87529; 87634; 87798; 93005; 93306; 96374; 96375; 99285

== ENCOUNTER 2019-08-06 07:58 | Day surgery (SDC) | payer OTHER ==
[2019-08-04 15:22] VITALS: BMI 23.7
[~2019-08-06 07:58] MED LIST: LACTATED RINGERS 1,000 ML IV SCH; LIDOCAINE 1% 20 ML VIAL (10MG/ML) FOR IV START INTRADERMA PRN
[2019-08-06 08:16] VITALS: TEMP 97.8
[2019-08-06 08:22] LABS: Glucose,Whole Blood 113 mg/dL (75-99)
[2019-08-06] MEDS ORDERED: PROPOFOL 10 MG/ML 20 ML VIAL IV ONE (08:34)
[2019-08-06] MEDS ORDERED: LIDOCAINE 1% INJ 10MG/ML (20 ML MDV) ONE (08:34)
--- NOTE | 2019-08-06 09:04 | P.PCN ---
Date of Procedure: 08/06/19 Procedure(s) Performed: Brief history: Patient is a pleasant 58-year-old white male scheduled for an elective upper endoscopy as well as colonoscopy as a part of evaluation of anemia and screening for colorectal neoplasia Procedure performed: Esophagogastroduodenoscopy with biopsy Colonoscopy Preoperative diagnosis: Anemia Screening for colon cancer Anesthesia: [facility] Procedure: After informed consent was obtained from the patient was brought into the endoscopy unit and IV sedation was administered by anesthesia under continuous monitoring. Initially upper endoscopy was done. The Olympus GF 160 video endoscope was inserted inserted into the mouth and esophagus intubated without any difficulty and was gradually advanced into the stomach and duodenum and carefully examined. The bulb and second part of the duodenum appeared normal. Biopsies were done from the duodenum to rule out celiac disease. The scope was then withdrawn into the stomach adequately insufflated with air and upon careful examination the antrum had mild gastritis and biopsies were done from this area. The body, cardia and fundus appeared normal. The scope was then withdrawn into the esophagus. The GE junction was located at 40 cm to the incisors. It appeared regular with no erythema erosions or ulcerations. Rest of the esophagus appeared normal. Patient tolerated the procedure well. At this time the patient continued to remain sedation. Initial digital rectal examination was normal. Olympus CF 160 video colonoscope was then inserted into the rectum and gradually advanced to the cecum without any difficulty. Careful examination was performed as the scope was gradually being withdrawn. The prep was fair.. The cecum, ascending colon, transverse colon, descending colon, sigmoid colon and rectum appeared normal. Retroflexion was performed in the rectum and no lesions were noted. Patient tolerated the procedure well. Impression: 1. Upper endoscopy revealed mild antral gastritis but no evidence of esophagitis or peptic ulcer disease 2. Colonoscopy was essentially within normal limits with no evidence of colitis or colorectal neoplasia Recommendations: Findings of this examination were discussed with the patient as well as his family. He was advised to follow with the biopsy Results. He Can Have a Repeat Screening Colonoscopy in 10 Years
[2019-08-06 09:10] VITALS: RESP 18
[2019-08-06 09:24] VITALS: BP 121/77; PULSE 50
== END 2019-08-06 09:56 | disposition home or self-care (01) ==
LOC: ORWHC2ENDO 07:58
PROVIDERS: ATTEND Internal Medicine Gastroenterology
DX: Z12.11 Encounter for screening for malignant neoplasm of colon (principal); K29.50 Unspecified chronic gastritis without bleeding; D50.9 Iron deficiency anemia, unspecified; K21.9 Gastro-esophageal reflux disease without esophagitis; I25.10 Atherosclerotic heart disease of native coronary artery without angina pectoris; I10 Essential (primary) hypertension; E11.9 Type 2 diabetes mellitus without complications; M06.9 Rheumatoid arthritis, unspecified; Z79.4 Long term (current) use of insulin; Z96.41 Presence of insulin pump (external) (internal); Z79.899 Other long term (current) drug therapy
CPT/HCPCS: 88305; 43239; J2001; J2704; G0121

== ENCOUNTER → 2020-06-09 | Outpatient (CLI) | payer OTHER ==
[2020-06-09 08:04] LABS: African American GFR (CKD) >90 (>60 ml/min/1.73 sqM); Blood Urea Nitrogen 14 mg/dL (9-20); Non-African American GFR(CKD) >90 (>60 ml/min/1.73 sqM)
--- NOTE | 2020-06-09 11:05 | CT ---
EXAMINATION TYPE: CT angio chest DATE OF EXAM: 06/09/2020 COMPARISON: 05/17/2019 HISTORY: 59-year-old male Thoracic aortic aneurysm TECHNIQUE: Contiguous axial scanning of the chest performed with IV Contrast, patient injected with 1 00 mL of Isovue 300. Coronal/sagittal MIP reconstructions performed. 3-D reconstructions generated on a dedicated workstation. CT DLP: 377 mGycm Automated exposure control for dose reduction was used. FINDINGS: Heart normal size without pericardial effusion. Aortic root aneurysmal at 4.4 cm, unchanged. Ascending aorta is ectatic at 3.8 cm. Conventional arch vessel branching anatomy. Ectatic upper descending thoracic aorta at 3.1 cm. Borderline ectatic mid descending thoracic aorta 2.6 cm. No evidence for aortic dissection. Scattered nonenlarged mediastinal lymph nodes are present, unchanged from prior. No consolidation or pleural effusion. Strandy atelectasis in the lower lungs. Tiny hiatal hernia. Scattered hepatic lesions redemonstrated, the smaller 1's are hypervascular and u nchanged suggesting flash filling hemangiomas. Larger 2.6 cm lesion posterior right hepatic dome show s peripheral nodular enhancement suggesting a hemangioma as well. Bones: No osseous destructive process. Interval development of subacute to chronic healing fractures of the left lateral fourth, fifth, and sixth ribs. IMPRESSION: 1. ANEURYSMAL AORTIC ROOT AT 4.4 CM, UNCHANGED. ECTATIC ASCENDING AORTA (3.8 CM) AND UPPER DESCENDING THORACIC AORTA (3.1 CM), ALSO UNCHANGED. 2. TINY HIATAL HERNIA. 3. NEW FROM 05/17/2019 ARE HEALING/NEARLY HEALED FRACTURES OF THE LEFT LATERAL FOURTH THROUGH SIXTH R IBS.
== END | disposition home or self-care (01) ==
LOC: RADCTMAIN 07:33
PROVIDERS: ATTEND Internal Medicine Interventional Cardiology
DX: I77.810 Thoracic aortic ectasia (principal)
CPT/HCPCS: 82565; 84520; 71275; 36415; Q9967

== ENCOUNTER → 2021-11-05 | Outpatient (CLI) | payer OTHER ==
[2021-11-06 21:32] LABS: Alternaria alternata IgE <0.10 kU/L; Aspergillus fumagatus IgE <0.10 kU/L; Birch IgE 1.31 kU/L; Cat Epith & Dander IgE 0.68 kU/L; Cladosporian herbarum IgE <0.10 kU/L; Cockroach IgE <0.10 kU/L; Dermato. farinae IgE 3.03 kU/L; Dog Dander IgE <0.10 kU/L; Egg White IgE <0.10 kU/L; Elm IgE <0.10 kU/L; Maple (Box Elder) IgE 0.11 kU/L; Oak IgE <0.10 kU/L; Peanut IgE <0.10 kU/L; Ragweed,Common IgE 1.07 kU/L; Red Top (Bentgrass) IgE 5.04 kU/L; Soybean IgE <0.10 kU/L
[2021-11-07 07:14] LABS: Beef IgE <0.10 kU/L (<0.10); Beef IgE Class CLASS 0; Pork IgE Class CLASS 0
[2021-11-07 07:15] LABS: Gluten IgE Class CLASS 0; Potato IgE <0.10 kU/L (<0.10); Potato IgE Class CLASS 0; Yeast Bakers/Brew IgE <0.10 kU/L (<0.10); Yeast Bakers/Brew IgE Class CLASS 0
[2021-11-07 07:16] LABS: Avocado Class CLASS 0; Banana IgE Class CLASS 0; Chicken IgE Class CLASS 0; Hazelnut IgE 0.15 kU/L (<0.10); Hazelnut IgE Class CLASS 0/1; Kiwi IgE <0.10 kU/L (<0.10); Kiwi IgE Class CLASS 0; Latex IgE Class CLASS 0
== END | disposition home or self-care (01) ==
LOC: LABWHC1 14:28
PROVIDERS: ATTEND Otolaryngology
DX: J30.89 Other allergic rhinitis (principal)
CPT/HCPCS: 36415; 82785; 86003